=== PATIENT | female | born 1990 | race Caucasian/White ===

== ENCOUNTER 2022-06-19 19:58 | Emergency (ER) | payer OTHER ==
[2022-06-19] MEDS ORDERED: IBUPROFEN 600 MG TABLET (FP) PO ONE ×2 (20:05→20:09)
[2022-06-19] MEDS ORDERED: ACETAMINOPHEN 500 MG TABLET (FP) PO ONE (20:12)
[2022-06-19] MEDS ORDERED: ACETAMINOPHEN 500 MG TABLET (FP) ONE (20:13)
[2022-06-19 20:57] VITALS: BP 124/80; PULSE 84; RESP 18; TEMP 98.8; BMI 39.6
== END 2022-06-19 21:22 | disposition home or self-care (01) ==
LOC: FER 19:58
DX: S63.601A Unspecified sprain of right thumb, initial encounter (principal)
CPT/HCPCS: 73130-TC-RT-FY; 73140-TC-RT-FY; 99284-25